=== PATIENT | male | born 1940 | race Caucasian/White ===

== ENCOUNTER → 2016-04-05 | Outpatient (CLI) | payer MEDICARE | LOC: LAB 09:50 | PROVIDERS: ATTEND Family Medicine | DX: E78.2 Mixed hyperlipidemia (principal); E10.65 Type 1 diabetes mellitus with hyperglycemia; N41.0 Acute prostatitis; N41.9 Inflammatory disease of prostate, unspecified | CPT/HCPCS: 36415; 80061; 83036; 84153 ==

== ENCOUNTER → 2016-05-30 | Outpatient (CLI) | payer MEDICARE ==
[~2016-05-30] MED LIST: ALLO300T2 PO; AMLO10TA82 PO; ASPI-860 PO; CARV12.5 PO; CHOL100045 PO; CLOP75TA28 PO; FURO40TA4 PO; GLIP5TAB13 PO; HYDR-3702 PO; INSU100V5 SC; IRBE1TAB67 PO; LVT.05T PO; METF-473 PO; MULT-35 PO; NF-POTCH10 PO
[2016-05-30 15:14] LABS: BASOPHILS % (AUTO) 1 % (0-2); EOSINOPHILS # (AUTO) 0.3 10^3uL; EOSINOPHILS % (AUTO) 4 % (0-4); LYMPHOCYTES # (AUTO) 1.4 X10^3; MEAN CORPUSCULAR HEMOGLOBIN 28.3 PG (26.0-34.0); MEAN CORPUSCULAR HGB CONC 33.4 g/dL (31.0-37.0); MEAN CORPUSCULAR VOLUME 85 FL (80-100); MEAN PLATELET VOLUME 9.6 FL (6.0-9.5); MONOCYTES # (AUTO) 0.7 X10^3; MONOCYTES % (AUTO) 10 % (3-11); NEUTROPHILS # (AUTO) 4.4 X10^3; NEUTROPHILS % (AUTO) 65 % (51-67); PLATELET COUNT 233 10^3uL (150-450); WHITE BLOOD COUNT 6.76 10^3uL (4.0-11.0)
--- NOTE | 2016-05-30 15:39 | Diagnostic Imaging Report ---
INDICATION: Dyspnea, heart failure. DISCUSSION: Two views of the chest were obtained, comparison 01/11/2016. Underlying COPD is stable. Stable normal heart size. Left-sided pacemaker and median sternotomy are unchanged. No focal consolidation, pleural fluid, or pneumothorax. Subsegmental atelectasis present within the left lung base. IMPRESSION: 1. Negative chest. Dictated by: Dictated on workstation # [id number]
[2016-05-30 16:02] LABS: ANION GAP 18.8 MEQ/L (3-15); MAGNESIUM* 1.8 mg/dL (1.6-2.3)
== END ==
LOC: LAB 15:03
PROVIDERS: ATTEND Family Medicine
DX: I50.21 Acute systolic (congestive) heart failure (principal); E83.42 Hypomagnesemia; D50.8 Other iron deficiency anemias; R79.89 Other specified abnormal findings of blood chemistry
CPT/HCPCS: 36415; 71020; 80048; 83735; 83880; 85025

== ENCOUNTER → 2016-06-13 | Outpatient (CLI) | payer MEDICARE ==
[2016-06-13 14:57] LABS: ANION GAP 18.1 MEQ/L (3-15)
== END ==
LOC: LAB 14:23
PROVIDERS: ATTEND Family Medicine
DX: R79.89 Other specified abnormal findings of blood chemistry (principal)
CPT/HCPCS: 36415; 80048

== ENCOUNTER 2016-06-30 01:22 | Emergency (ER) | payer MEDICARE ==
[~2016-06-30] VITALS: Ht 172.7 cm; Wt 90.0 kg
[~2016-06-30 01:22] MED LIST changes: -MOME13HF IH; -NIAC500T24 PO
--- OUTSIDE RECORDS SUMMARY | 2016-06-30 01:29 | XMS REPORT | Continuity of Care Document ---
Author Author [facility] Address Unknown Phone Unavailable Allergies Active Description Code Type Severity Reaction Onset Reported/Identified Relationship to Patient Clinical Status Yes No Known Drug Allergies [id number] Drug Allergy Unknown N/ A 01/24/2013 Yes Jlqrdnf-Naq-Fwd Reductase Inhibitor [id number] Drug Allergy Mild N/A 09/12/2014 Medications Problems Date Dx Coded Attending Type Code Diagnosis Diagnosed By 01/24/2013 ANDI SOLIZ, DIEGO Kern Ot 250.00 01/24/2013 DIEGO ESCAMILLA MD Ot 401.9 01/24/2013 ANDI SOLIZ, DIEGO Kern Ot 782.0 01/15/2014 CORBIN SOLIZ, NATALIA Medrano Ot 250.00 01/15/2014 CORBIN SOLIZ, NATALIA Medrano Ot 272.0 01/15/2014 CORBIN SOLIZ, NATALIA Medrano Ot 274.9 01/15/2014 CORBIN SOLIZ, NATALIA Medrano Ot 285.9 01/15/2014 CORBIN SOLIZ, NATALIA Medrano Ot 401.9 01/15/2014 CORBIN SOLIZ, NATALIA Medrano Ot 427.9 01/15/2014 CORBIN SOLIZ, NATALIA Medrano Ot 599.0 01/15/2014 CORBIN SOLIZ, NATALIA Medrano Ot 601.9 01/15/2014 CORBIN SOLIZ, NATALIA Medrano Ot 733.00 01/15/2014 CORBIN SOLIZ, NATALIA Medrano Ot 786.09 01/15/2014 CORBIN SOLIZ, NATALIA Medrano Ot 790.6 02/17/2014 CORBIN SOLIZ, NATALIA Medrano Ot 601.9 02/17/2014 CROBIN SOLIZ, NATALIA Medrano Ot 786.2 02/17/2014 CORBIN SOLIZ, NATALIA Medrano Ot 790.29 02/19/2014 CORBIN SOLIZ, NATALIA Medrano Ot 601.9 02/19/2014 CORBIN SOLIZ, NATALIA Medrano Ot 786.2 02/19/2014 CORBIN SOLIZ, NATALIA Medrano Ot 790.29 03/06/2014 Bartolo Villavicencio Ot 788.63 04/16/2014 Ethan SOLIZ, Jon Brown Ot 599.0 04/16/2014 Ethan SOLIZ, Jon Brown Ot 791.5 06/10/2014 Ehtan SOLIZ, Jon Brown Ot 595.0 06/26/2014 Ethan SOLIZ, Jon Brown Ot 562.10 06/26/2014 Ethan SOLIZ, Jon Brown Ot 573.9 06/26/2014 Ethan SOLIZ, Jon Brown Ot 574.20 06/26/2014 Ethan SOLIZ, Jon Brown Ot 599.0 06/26/2014 Ethan SOLIZ, Jon Brown Ot 785.6 06/26/2014 Ethan SOLIZ, Jon Brown Ot 794.9 07/11/2014 Ethan SOLIZ, Jon Brown Ot 562.10 07/11/2014 Ethan SOLIZ, Jon Brown Ot 573.9 07/11/2014 Ethan SOLIZ, Jon Brown Ot 574.20 07/11/2014 Ethan SOLIZ, Jon Brown Ot 599.0 07/11/2014 Ethan SOLIZ, Jon Brown Ot 785.6 07/11/2014 Ethan SOLIZ, Jon Brown Ot 794.9 08/03/2014 ALYSSIA DO, CELINE M Ot 410.91 08/03/2014 ALYSSIA DO, CELINE M Ot 428.0 08/03/2014 ALYSSIA DO, CELINE M Ot 518.81 08/03/2014 ALYSSIA DO, CELINE M Ot 786.05 08/20/2014 Ethan SOLIZ, Jon Brown Ot 790.93 08/27/2014 ALYSSIA DO, CELINE M Ot 410.90 08/27/2014 ALYSSIA DO, CELINE M Ot 518.81 08/28/2014 ALYSSIA DO, CELINE M Ot 410.90 08/28/2014 ALYSSIA DO, CELINE M Ot 518.81 09/12/2014 CRUZ DOMILAD M Ot 412 09/12/2014 CRUZ DOMILAD Ot 724.5 09/12/2014 CRUZ DOMILAD Ot 847.1 09/12/2014 CRUZ DOMILDA Ot E928.9 09/12/2014 CRUZ MILAD OROZCO Ot V45.81 10/10/2014 CORBIN SOLIZ, NATALIA R Ot 428.0 10/10/2014 CORBIN SOLIZ, NATALIA R Ot 790.6 11/19/2014 Drew John Ot 414.00 11/19/2014 Drew John Ot V45.01 11/19/2014 Drew John Ot V45.81 11/19/2014 Drew John Ot V57.89 12/11/2014 CORBIN SOLIZ, NATALIA R Ot G47.33 12/14/2014 CORBIN SOLIZ, NATALIA R Ot G47.33 12/24/2014 CORBIN SOLIZ, NATALIA R Ot G47.33 01/01/2015 CORBIN SOLIZ, NATALIA R Ot G47.33 01/19/2015 CORBIN SOLIZ, NATALIA Medrano Ot D50.8 01/19/2015 CORBIN SOLIZ, NATALIA R Ot E10.9 01/19/2015 CORBIN SOLIZ, NATALIA Medrano Ot E78.0 01/19/2015 CORBIN SOLIZ, NATALIA Medrano Ot E83.42 01/19/2015 CORBIN SOLIZ, NATALIA R Ot G72.0 01/19/2015 CORBIN SOLIZ, NATALIA R Ot K71.2 01/19/2015 CORBIN SOLIZ, NATALIA R Ot M10.00 01/19/2015 CORBIN SOLIZ, NATALIA R Ot M15.9 01/19/2015 CORBIN SOLIZ, NATALIA R Ot M81.0 01/19/2015 CORBIN SOLIZ, NATALIA R Ot N39.0 01/19/2015 CORBIN SOLIZ, NATALIA R Ot R79.89 01/19/2015 CORBIN SOLIZ, NATALIA R Ot Z12.5 01/19/2015 Drew John Ot Z95.0 01/19/2015 Drew John Ot Z95.1 01/22/2015 CORBIN SOLIZ, NATALIA Medrano Ot D50.8 01/22/2015 CORBIN SOLIZ, NATALIA Medrano Ot E10.9 01/22/2015 CORBIN SOLIZ, NATALIA Medrano Ot E78.0 01/22/2015 CORBIN SOLIZ, NATALIA Medrano Ot E83.42 01/22/2015 CORBIN SOLIZ, NATALIA R Ot G72.0 01/22/2015 CORBIN SOLIZ, NATALIA R Ot K71.2 01/22/2015 CORBIN SOLIZ, NATALIA R Ot M10.00 01/22/2015 CORBIN SOLIZ, NATALIA R Ot M15.9 01/22/2015 CORBIN SOLIZ, NATALIA R Ot M81.0 01/22/2015 CORBIN SOLIZ, NATALIA R Ot N39.0 01/22/2015 CORBIN SOLIZ, NATALIA R Ot R79.89 01/22/2015 CORBIN SOLIZ, NATALIA R Ot Z12.5 02/25/2015 Ot 715.09 02/25/2015 Ot 244.9 02/25/2015 Ot 250.00 02/25/2015 Ot 272.0 02/25/2015 Ot 275.2 02/25/2015 Ot 285.9 02/25/2015 Ot 427.9 02/25/2015 Ot 599.0 02/25/2015 Ot 733.00 02/25/2015 Ot 786.2 02/25/2015 Ot 790.6 02/25/2015 Ot V76.44 02/25/2015 Ot 250.00 02/25/2015 Ot 272.0 02/25/2015 Ot 401.9 02/25/2015 Ot 601.9 02/25/2015 Ot 733.90 02/25/2015 CORBIN SOLIZ, NATALIA R Ot 401.9 02/25/2015 CORBIN SOLIZ, NATALIA R Ot 434.91 02/25/2015 CORBIN SOLIZ, NATALIA R Ot 396.3 02/25/2015 CORBIN SOLIZ, NATALIA R Ot 397.0 02/25/2015 CORBIN SOLIZ, NATALIA R Ot 429.3 02/25/2015 CORBIN SOLIZ, NATALIA R Ot 429.9 02/25/2015 CORBIN SOLIZ, NATALIA R Ot 434.91 02/25/2015 CORBIN SOLIZ, NATALIA R Ot 272.0 02/25/2015 CORBIN SOLIZ, NATALIA R Ot 601.9 02/25/2015 CORBIN SOLIZ, NATALIA R Ot 790.6 02/25/2015 CORBIN SOLIZ, NATALIA R Ot 250.00 02/25/2015 CORBIN SOLIZ, NATALIA R Ot 272.0 02/25/2015 CORBIN SOLIZ, NATALIA R Ot 274.9 02/25/2015 CORBIN SOLIZ, NATALIA R Ot 285.9 02/25/2015 CORBIN SOLIZ, NATALIA R Ot 401.9 02/25/2015 CORBIN SOLIZ, NATALIA R Ot 427.9 02/25/2015 CORBIN SOLIZ, NATALIA R Ot 599.0 02/25/2015 CORBIN SOLIZ, NATALIA R Ot 601.9 02/25/2015 CORIBN SOLIZ, NATALIA R Ot 733.00 02/25/2015 CORBIN SOLIZ, NATALIA R Ot 786.09 02/25/2015 CORBIN SOLIZ, NATALIA R Ot 790.6 02/25/2015 CORBIN SOLIZ, NATALIA R Ot 601.9 02/25/2015 CORBIN SOLIZ, NATALIA R Ot 786.2 02/25/2015 CORBIN SOLIZ, NATALIA R Ot 790.29 02/25/2015 Bartolo Villavicencio Ot 788.63 02/25/2015 Ethan SOLIZ, Jon Brown Ot 599.0 02/25/2015 Ethan SOLIZ, Jon Brown Ot 791.5 02/25/2015 Ethan SOLIZ, Jon Brown Ot 595.0 02/25/2015 Ethan SOLIZ, Jon Brown Ot 562.10 02/25/2015 Ethan SOLIZ, Jon Brown Ot 573.9 02/25/2015 Ethan SOLIZ, Jon Brown Ot 574.20 02/25/2015 Ethan SOLIZ, Jon Brown Ot 599.0 02/25/2015 Ethan SOLIZ, Jon Brown Ot 785.6 02/25/2015 Ethan SOLIZ, Jon Brown Ot 794.9 02/25/2015 Ethan SOLIZ, Jon Brown Ot 790.93 02/25/2015 ALYSSIA DOCELINE M Ot 410.90 02/25/2015 ELLIOT CADE DOA M Ot 518.81 02/25/2015 CORIBN SOLIZ, NATALIA Medrano Ot 428.0 02/25/2015 CORBIN SOLIZ, NATALIA Medrano Ot 790.6 02/25/2015 CORBIN SOLIZ, NATALIA Medrano Ot G47.33 02/25/2015 CORBIN SOLIZ, NATALIA Medrano Ot D50.8 02/25/2015 CORBIN SOLIZ, NATALIA Medrano Ot E10.9 02/25/2015 CORBIN SOLIZ, NATALIA R Ot E78.0 02/25/2015 CORBIN SOLIZ, NATALIA R Ot E83.42 02/25/2015 CORBIN SOLIZ, NATALIA R Ot G72.0 02/25/2015 CORBIN SOLIZ, NATALIA R Ot K71.2 02/25/2015 CORBIN SOLIZ, NATALIA R Ot M10.00 02/25/2015 CORBIN SOLIZ, NATALIA R Ot M15.9 02/25/2015 CORBIN SOLIZ, NATALIA R Ot M81.0 02/25/2015 CORBIN SOLIZ, NATALIA R Ot N39.0 02/25/2015 CORBIN SOLIZ, NATALIA R Ot R79.89 02/25/2015 CORBIN SOLIZ, NATALIA R Ot Z12.5 03/04/2015 Ot 715.09 03/04/2015 Ot 244.9 03/04/2015 Ot 250.00 03/04/2015 Ot 272.0 03/04/2015 Ot 275.2 03/04/2015 Ot 285.9 03/04/2015 Ot 427.9 03/04/2015 Ot 599.0 03/04/2015 Ot 733.00 03/04/2015 Ot 786.2 03/04/2015 Ot 790.6 03/04/2015 Ot V76.44 03/04/2015 Ot 250.00 03/04/2015 Ot 272.0 03/04/2015 Ot 401.9 03/04/2015 Ot 601.9 03/04/2015 Ot 733.90 03/04/2015 CORBIN SOLIZ, NATALIA R Ot 401.9 03/04/2015 CORBIN SOLIZ, NATALAI R Ot 434.91 03/04/2015 CORBIN SOLIZ, NATALIA R Ot 396.3 03/04/2015 CORBIN SOLIZ, NATALIA R Ot 397.0 03/04/2015 CORBIN SOLIZ, NATALIA R Ot 429.3 03/04/2015 CORBIN SOLIZ, NATALIA R Ot 429.9 03/04/2015 CORBIN SOLIZ, NATALIA R Ot 434.91 03/04/2015 CORBIN SOLIZ, NATALIA R Ot 272.0 03/04/2015 CORBIN SOLIZ, NATALIA R Ot 601.9 03/04/2015 CORBIN SOLIZ, NATALIA R Ot 790.6 03/04/2015 CORBIN SOLIZ, NATALIA R Ot 250.00 03/04/2015 CORBIN SOLIZ, NATALIA R Ot 272.0 03/04/2015 CORBIN SOLIZ, NATALIA R Ot 274.9 03/04/2015 CORBIN SOLIZ, NATALIA R Ot 285.9 03/04/2015 CORBIN SOLIZ, NATALIA R Ot 401.9 03/04/2015 CORBIN SOLIZ, NATALIA R Ot 427.9 03/04/2015 CORBIN SOLIZ, NATALIA R Ot 599.0 03/04/2015 CORBIN SOLIZ, NATALIA R Ot 601.9 03/04/2015 CORBIN SOLIZ, NATALIA R Ot 733.00 03/04/2015 CORBIN SOLIZ, NATALIA R Ot 786.09 03/04/2015 CORBIN SOLIZ, NATALIA R Ot 790.6 03/04/2015 CORBIN SOLIZ, NATALIA R Ot 601.9 03/04/2015 CORBIN SOLIZ, NATALIA R Ot 786.2 03/04/2015 CORBIN SOLIZ, NATALIA R Ot 790.29 03/04/2015 Bartolo Villavicencio Ot 788.63 03/04/2015 Ethan SOLIZ, Jon Brown Ot 599.0 03/04/2015 Ethan SOLIZ, Jon Brown Ot 791.5 03/04/2015 Ethan SOLIZ, Jon Brown Ot 595.0 03/04/2015 Ethan SOLIZ, Jon Brown Ot 562.10 03/04/2015 Ethan SOLIZ, Jon Brown Ot 573.9 03/04/2015 Ethan SOLIZ, Jon Brown Ot 574.20 03/04/2015 Ethan SOLIZ, Jon Brown Ot 599.0 03/04/2015 Ethan SOLIZ, Jon Brown Ot 785.6 03/04/2015 Ethan SOLIZ, Jon Brown Ot 794.9 03/04/2015 Ethan SOLIZ, Jon Brown Ot 790.93 03/04/2015 CELINE CADE DO M Ot 410.90 03/04/2015 CELINE CADE DO M Ot 518.81 03/04/2015 CORBIN SOLIZ, NATALIA R Ot 428.0 03/04/2015 CORBIN SOLIZ, NATALIA R Ot 790.6 03/04/2015 CORBIN SOLIZ, NATALIA R Ot G47.33 03/04/2015 CORBIN SOLIZ, NATALIA R Ot D50.8 03/04/2015 CORBIN SOLIZ, NATALIA R Ot E10.9 03/04/2015 CORBIN SOLIZ, NATALIA R Ot E78.0 03/04/2015 CORBIN SOLIZ, NATALIA R Ot E83.42 03/04/2015 CORBIN SOLIZ, NATALIA R Ot G72.0 03/04/2015 CORBIN SOLIZ, NATALIA R Ot K71.2 03/04/2015 CORBIN SOLIZ, NATALIA R Ot M10.00 03/04/2015 CORBIN SOLIZ, NATALIA R Ot M15.9 03/04/2015 CORBNI SOLIZ, NATALIA R Ot M81.0 03/04/2015 CORBIN SOLIZ, NATALIA R Ot N39.0 03/04/2015 CORBIN SOLIZ, NATALIA R Ot R79.89 03/04/2015 CORBIN SOLIZ, NATALIA R Ot Z12.5 04/15/2015 CORBIN SOLIZ, NATALIA R Ot E10.65 04/15/2015 CORBIN SOLIZ, NATALIA R Ot E78.0 04/15/2015 CORBIN SOLIZ, NATALIA R Ot I50.21 04/23/2015 CORBIN SOLIZ, NATALIA R Ot E10.65 04/23/2015 CORBIN SOLIZ, NATALIA R Ot E78.0 04/23/2015 CORBIN SOLIZ, NATALIA R Ot I50.21 05/08/2015 Daily , Kashif Perez Ot M17.0 05/08/2015 Daily , Kashif Perez Ot M25.461 05/08/2015 Daily , Kashif Perez Ot M25.462 05/08/2015 Daily , Kashif Perez Ot M25.561 05/08/2015 Daily , Kashif Perez Ot M25.562 05/15/2015 Daily , Kashif Perez Ot M17.0 05/15/2015 Daily , Kashif Perez Ot M25.461 05/15/2015 Daily , Kashif Perez Ot M25.462 05/15/2015 Daily , Kashif Perez Ot M25.561 05/15/2015 Daily , Kashif Perez Ot M25.562 05/20/2015 NATALIA ALANIZ MD Ot E10.65 05/20/2015 NATALIA ALANIZ MD Ot E78.0 05/20/2015 NATALIA ALANIZ MD Ot I50.21 06/22/2015 NATALIA ALANIZ MD Ot E10.65 TYPE 1 DIABETES MELLITUS WITH HYPERGLYCE 06/22/2015 NATALIA ALANIZ MD Ot E10.65 TYPE 1 DIABETES MELLITUS WITH HYPERGLYCE 06/29/2015 NATALIA ALANIZ MD Ot E10.65 TYPE 1 DIABETES MELLITUS WITH HYPERGLYCE 07/06/2015 NATALIA ALANIZ MD Ot D50.8 OTHER IRON DEFICIENCY ANEMIAS 07/06/2015 NATALIA ALANIZ MD Ot E10.65 TYPE 1 DIABETES MELLITUS WITH HYPERGLYCE 07/06/2015 NATALIA ALANIZ MD Ot I50.21 ACUTE SYSTOLIC (CONGESTIVE) HEART FAILUR 07/16/2015 NATALIA ALANIZ MD Ot D50.8 OTHER IRON DEFICIENCY ANEMIAS 07/16/2015 NATALIA ALANIZ MD Ot E10.65 TYPE 1 DIABETES MELLITUS WITH HYPERGLYCE 07/16/2015 NATALIA ALANIZ MD Ot I50.21 ACUTE SYSTOLIC (CONGESTIVE) HEART FAILUR 07/23/2015 NATALIA ALANIZ MD Ot D50.8 OTHER IRON DEFICIENCY ANEMIAS 07/23/2015 NATALIA ALANIZ MD Ot E10.65 TYPE 1 DIABETES MELLITUS WITH HYPERGLYCE 07/23/2015 NATALIA ALANIZ MD Ot I50.21 ACUTE SYSTOLIC (CONGESTIVE) HEART FAILUR 10/08/2015 NATALIA ALANIZ MD Ot R79.89 OTHER SPECIFIED ABNORMAL FINDINGS OF BLO 10/08/2015 NATALIA ALANIZ MD Ot R79.89 OTHER SPECIFIED ABNORMAL FINDINGS OF BLO 10/13/2015 NATALIA ALANIZ MD Ot E10.65 TYPE 1 DIABETES MELLITUS WITH HYPERGLYCE 10/13/2015 NATALIA ALANIZ MD Ot R79.89 OTHER SPECIFIED ABNORMAL FINDINGS OF BLO 10/14/2015 NATALIA ALANIZ MD Ot E10.65 TYPE 1 DIABETES MELLITUS WITH HYPERGLYCE 10/14/2015 NATALIA ALANIZ MD Ot R79.89 OTHER SPECIFIED ABNORMAL FINDINGS OF BLO 10/20/2015 NATALIA ALANIZ MD, Ot E10.65 TYPE 1 DIABETES MELLITUS WITH HYPERGLYCE 10/20/2015 NATALIA ALANIZ MD Ot R79.89 OTHER SPECIFIED ABNORMAL FINDINGS OF BLO 10/30/2015 NATALIA ALANIZ MD Ot E10.65 TYPE 1 DIABETES MELLITUS WITH HYPERGLYCE 10/30/2015 NATALIA ALANIZ MD Ot R79.89 OTHER SPECIFIED ABNORMAL FINDINGS OF BLO 01/11/2016 NATALIA ALANIZ MD Ot E78.5 HYPERLIPIDEMIA, UNSPECIFIED 01/11/2016 NATALIA ALANIZ MD Ot R79.89 OTHER SPECIFIED ABNORMAL FINDINGS OF BLO 01/11/2016 NATALIA ALANIZ MD, Ot E78.5 HYPERLIPIDEMIA, UNSPECIFIED 01/11/2016 NATALIA ALANIZ MD Ot R79.89 OTHER SPECIFIED ABNORMAL FINDINGS OF BLO 01/11/2016 NATALIA ALANIZ MD, Ot E78.5 HYPERLIPIDEMIA, UNSPECIFIED 01/11/2016 NATALIA ALANIZ MD Ot R79.89 OTHER SPECIFIED ABNORMAL FINDINGS OF BLO 01/11/2016 NATALIA ALANIZ MD, Ot E78.5 HYPERLIPIDEMIA, UNSPECIFIED 01/11/2016 NATALIA ALANIZ MD Ot R79.89 OTHER SPECIFIED ABNORMAL FINDINGS OF BLO 01/15/2016 NATALIA ALANIZ MD Ot D50.8 OTHER IRON DEFICIENCY ANEMIAS 01/15/2016 NATALIA ALANIZ MD Ot E03.4 ATROPHY OF THYROID (ACQUIRED) 01/15/2016 NATALIA ALANIZ MD Ot E10.65 TYPE 1 DIABETES MELLITUS WITH HYPERGLYCE 01/15/2016 NATALIA ALANIZ MD, Ot E78.5 HYPERLIPIDEMIA, UNSPECIFIED 01/15/2016 NATALIA ALANIZ MD Ot E83.42 HYPOMAGNESEMIA 01/15/2016 NATALIA ALANIZ MD Ot I25.10 ATHSCL HEART DISEASE OF [place] CORONARY 01/15/2016 NATALIA ALANIZ MD Ot M10.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, RIGHT KNEE 01/15/2016 NATALIA ALANIZ MD Ot N39.0 URINARY TRACT INFECTION, SITE NOT SPECIF 01/15/2016 NATALIA ALANIZ MD Ot R79.89 OTHER SPECIFIED ABNORMAL FINDINGS OF BLO 01/15/2016 NATALIA ALANIZ MD Ot Z12.5 ENCOUNTER FOR SCREENING FOR MALIGNANT NE 02/03/2016 NATALIA ALANIZ MD Ot D50.8 OTHER IRON DEFICIENCY ANEMIAS 02/03/2016 NATALIA ALANIZ MD Ot E03.4 ATROPHY OF THYROID (ACQUIRED) 02/03/2016 NATALIA ALANIZ MD Ot E10.65 TYPE 1 DIABETES MELLITUS WITH HYPERGLYCE 02/03/2016 NATALIA ALANIZ MD Ot E78.5 HYPERLIPIDEMIA, UNSPECIFIED 02/03/2016 NATALIA ALANIZ MD Ot E83.42 HYPOMAGNESEMIA 02/03/2016 NATALIA ALANIZ MD Ot I25.10 ATHSCL HEART DISEASE OF [place] CORONARY 02/03/2016 NATALIA ALANIZ MD Ot M10.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, RIGHT KNEE 02/03/2016 NATALIA ALANIZ MD Ot N39.0 URINARY TRACT INFECTION, SITE NOT SPECIF 02/03/2016 NATALIA ALANIZ MD Ot R79.89 OTHER SPECIFIED ABNORMAL FINDINGS OF BLO 02/03/2016 NATALIA ALANIZ MD Ot Z12.5 ENCOUNTER FOR SCREENING FOR MALIGNANT NE 02/19/2016 NATALIA ALANIZ MD Ot D50.8 OTHER IRON DEFICIENCY ANEMIAS 02/19/2016 NATALIA ALANIZ MD Ot E03.4 ATROPHY OF THYROID (ACQUIRED) 02/19/2016 NATALIA ALANIZ MD, Ot E10.65 TYPE 1 DIABETES MELLITUS WITH HYPERGLYCE 02/19/2016 NATALIA ALANIZ MD Ot E78.5 HYPERLIPIDEMIA, UNSPECIFIED 02/19/2016 NATALIA ALANIZ MD Ot E83.42 HYPOMAGNESEMIA 02/19/2016 NATALIA ALANIZ MD Ot I25.10 ATHSCL HEART DISEASE OF [place] CORONARY 02/19/2016 NATALIA ALANIZ MD Ot M10.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, RIGHT KNEE 02/19/2016 NATALIA ALANIZ MD Ot N39.0 URINARY TRACT INFECTION, SITE NOT SPECIF 02/19/2016 NATALIA ALANIZ MD Ot R79.89 OTHER SPECIFIED ABNORMAL FINDINGS OF BLO 02/19/2016 NATALIA ALANIZ MD Ot Z12.5 ENCOUNTER FOR SCREENING FOR MALIGNANT NE 04/05/2016 NATALIA ALANIZ MD Ot E10.65 TYPE 1 DIABETES MELLITUS WITH HYPERGLYCE 04/05/2016 NATALIA ALANIZ MD Ot E78.2 MIXED HYPERLIPIDEMIA 04/05/2016 NATALIA ALANIZ MD, Ot N41.9 INFLAMMATORY DISEASE OF [place], UNSPEC 04/05/2016 NATALIA ALANIZ MD, Ot E10.65 TYPE 1 DIABETES MELLITUS WITH HYPERGLYCE 04/05/2016 NATALIA ALANIZ MD Ot E78.2 MIXED HYPERLIPIDEMIA 04/05/2016 NATALIA ALANIZ MD, Ot N41.9 INFLAMMATORY DISEASE OF [place], UNSPEC 04/06/2016 NATALIA ALANIZ MD Ot E10.65 TYPE 1 DIABETES MELLITUS WITH HYPERGLYCE 04/06/2016 NATALIA ALANIZ MD, Ot E78.2 MIXED HYPERLIPIDEMIA 04/06/2016 NATALIA ALANIZ MD, Ot N41.9 INFLAMMATORY DISEASE OF [place], UNSPEC 04/09/2016 NATALIA ALANIZ MD Ot E10.65 TYPE 1 DIABETES MELLITUS WITH HYPERGLYCE 04/09/2016 NATALIA ALANIZ MD Ot E78.2 MIXED HYPERLIPIDEMIA 04/09/2016 NATALIA ALANIZ MD, Ot N41.9 INFLAMMATORY DISEASE OF [place], UNSPEC 04/11/2016 NATALIA ALANIZ MD Ot E10.65 TYPE 1 DIABETES MELLITUS WITH HYPERGLYCE 04/11/2016 NATALIA ALANIZ MD Ot E78.2 MIXED HYPERLIPIDEMIA 04/11/2016 NATALIA ALANIZ MD Ot N41.0 ACUTE PROSTATITIS 04/11/2016 NATALIA ALANIZ MD Ot N41.9 INFLAMMATORY DISEASE OF [place], UNSPEC 04/28/2016 NATALIA ALANIZ MD Ot E10.65 TYPE 1 DIABETES MELLITUS WITH HYPERGLYCE 04/28/2016 NATALIA ALANIZ MD Ot E78.2 MIXED HYPERLIPIDEMIA 04/28/2016 NATALIA ALANIZ MD Ot N41.0 ACUTE PROSTATITIS 04/28/2016 NATALIA ALANIZ MD, Ot N41.9 INFLAMMATORY DISEASE OF [place], UNSPEC 05/30/2016 NATALIA ALANIZ MD Ot R79.89 OTHER SPECIFIED ABNORMAL FINDINGS OF BLO 05/30/2016 NATALIA ALANIZ MD Ot R79.89 OTHER SPECIFIED ABNORMAL FINDINGS OF BLO 05/31/2016 NATALIA ALANIZ MD Ot R79.89 OTHER SPECIFIED ABNORMAL FINDINGS OF BLO 06/01/2016 NATALIA ALANIZ MD, Ot D50.8 OTHER IRON DEFICIENCY ANEMIAS 06/01/2016 NATALIA ALANIZ MD, Ot E83.42 HYPOMAGNESEMIA 06/01/2016 NATALIA ALANIZ MD Ot I50.21 ACUTE SYSTOLIC (CONGESTIVE) HEART FAILUR 06/01/2016 NATALIA ALANIZ MD Ot R79.89 OTHER SPECIFIED ABNORMAL FINDINGS OF BLO 06/18/2016 NATALIA ALANIZ MD Ot R79.89 OTHER SPECIFIED ABNORMAL FINDINGS OF BLO 06/19/2016 NATALIA ALANIZ MD Ot R79.89 OTHER SPECIFIED ABNORMAL FINDINGS OF BLO 06/21/2016 NATALIA ALANIZ MD, Ot D50.8 OTHER IRON DEFICIENCY ANEMIAS 06/21/2016 NATALIA ALANIZ MD, Ot E83.42 HYPOMAGNESEMIA 06/21/2016 NATALIA ALANIZ MD Ot I50.21 ACUTE SYSTOLIC (CONGESTIVE) HEART FAILUR 06/21/2016 NATALIA ALANIZ MD Ot R79.89 OTHER SPECIFIED ABNORMAL FINDINGS OF BLO Procedures Results Test Result Range HEMOGLOBIN A1C* - 10/08/15 13:37 HEMOGLOBIN A1C* 6.8 4.0-6.0 BASIC METABOLIC PANEL* - 10/08/15 13:37 Sodium measurement 158 70-110 Carbon dioxide measurement 24 22-29 Serum or plasma anion gap 21.0 3-15 BLOOD UREA NITROGEN 27 7-18 CREATININE SERUM 1.21 0.8-1.5 Brucella species antibody panel (IgG, IgM) 22 10-20 Estimated glomerular filtration rate (GFR) 70.9 Estimated glomerular filtration rate (GFR) non- 58.6 CALCIUM 10.0 8.8-10.8 Urine microalbumin measurement by detection limit <=20 mg/l (mass/volume) - 13:37 Urine microalbumin measurement by detection limit <=20 mg/l (mass/volume) 30.2 0.0-1.7 Complete blood count (CBC) with automated white blood cell (WBC) differential - 01/11/16 09:21 Blood automated leukocyte count 4.91 4.0 -11.0 Erythrocytes 4.87 4.50-5.50 12.0-16.0;g/dL 14.3 13.5-17.0 Hematocrit 41.10 39.00-50.00 Automated erythrocyte mean corpuscular volume 84 80-100 Mean corpuscular hemoglobin (MCH) determination 29.4 26.0-34.0 Automated erythrocyte mean corpuscular hemoglobin concentration measurement ( mass/volume) 34.8 31.0-37.0 Erythrocyte distribution width 13.8 11.8 -15.6 Automated blood platelet count 217 150- 450 Automated blood platelet mean volume measurement 10.0 6.0-9.5 Automated neutrophil percentage 58 51- 67 Lymphocytes/100 leukocytes 26 20-46 Automated monocyte percentage 10 3-11 Eosinophil count auto 4 0-4 Automated basophil percentage 1 0-2 Automated blood neutrophil count 2.9 Blood lymphocytes count (number/volume) 1.3 Automated blood monocyte count 0.5 Blood absolute eosinophil count 0.2 Basophils 0.1 HEMOGLOBIN A1C* - 01/11/16 09:21 HEMOGLOBIN A1C* 7.0 4.0-6.0 UA CULTURE IF INDICATED* - 01/11/16 09:21 COLLECTION METHOD CLEAN CATCH Color of urine by auto Yellow Urine appearance determination Clear Urine pH measurement by automated test strip 6.0 5.0 - 8.0 Specific gravity of urine by automated test strip 1.020 1.005-1.030 Urine protein measurement by test strip (mass/volume) 1+ Negative Urine glucose detection by automated test strip Negative Negative Urine erythrocytes count by automated test strip (number/volume) Negative Negative Urine ketones detection by automated test strip Negative Negative Urine nitrite detection by test strip Negative Negative Urine total bilirubin detection by automated test strip Negative Negative Urine urobilinogen measurement by automated test strip (mass/volume) 0.2 0.2-1.0 Urine leukocyte esterase detection by dipstick Negative Negative Microscopic examination of urine - 01/11/16 09:21 Urine volume measurement 12 mL Urine erythrocytes detection by automated method None Seen Automated urine sediment leukocyte count by microscopy (number/high power field ) None Seen Bacteria None Seen SQUAMOUS EPITHELIAL CELL,UR 0-2 MUCOUS,URINE 1+ Comprehensive metabolic panel - 01/11/16 09:21 Sodium measurement 176 70-110 Carbon dioxide measurement 25 22-29 Serum or plasma anion gap 19.8 3-15 BLOOD UREA NITROGEN 20 7-18 CREATININE SERUM 1.27 0.8-1.5 Brucell[place] species antibody panel (IgG, IgM) 16 10-20 Estimated glomerular filtration rate (GFR) 67.1 Estimated glomerular filtration rate (GFR) non- 55.4 OSMOLALITY,CALCULATED 286 280-300 CALCIUM 9.9 8.8-10.8 Calculated ionized calcium measurement 4.1 3.8-4.6 BILIRUBIN,TOTAL 0.8 0.1-1.0 Serum or plasma alkaline phosphatase measurement 89 38-126 ASPARTATE AMINO TRANSFERASE 29 15-37 ALANINE AMINOTRANSFERASE 45 30-65 Serum or plasma total protein measurement 8.0 6.4-8.5 Serum or plasma albumin measurement 4.3 3.4-5.0 Serum or plasma albumin/globulin mass ratio 1.162 1.1-1.8 URIC ACID - 01/11/16 09: URIC ACID 6.8 3.8-7.1 Magnesium measurement - 01/11/16 09: Magnesium measurement 1.7 1.6-2.3 Vitamin D+Metabolites - 01/11/16 09: Vitamin D+Metabolites 33.7 30.0-100.0 THYROID STIMULATING HORMONE* - 01/11/16 09: THYROID STIMULATING HORMONE 0.98 0.46- 4.68 Prostate specific Ag - 01/11/16 09: Prostate specific Ag 8.3 0.0-4.0 Thyroxine (T4) measurement - 01/11/16 09: Serum or plasma thyroxine (T4) measurement (mass/volume) 8.3 4.8-11.7 LIPID PANEL - 01/11/16 09:21 Cholesterol 275 50-200 HDL Cholesterol 32 40-60 Triglycerides 647 10-150 LDL CHOLESTEROL TNP 50-130 VLDL Cholesterol, calc TNP 4.00-40.00 Cholesterol.total/Cholesterol.in HDL 8.6 0.0-5.0 * Serum or plasma hepatitis C virus antibody signal/cutoff by immunoassay - 09:21 * Serum or plasma hepatitis C virus antibody signal/cutoff by immunoassay Negative Urine microalbumin measurement by detection limit <=20 mg/l (mass/volume) - 09:25 Urine microalbumin measurement by detection limit <=20 mg/l (mass/volume) 30.2 0.0-1.7 HEMOGLOBIN A1C* - 04/05/16 09:55 HEMOGLOBIN A1C* 6.8 4.0-6.0 Prostate specific Ag - 04/05/16 09:55 Prostate specific Ag 7.3 0.0-4.0 LIPID PANEL - 04/05/16 09:55 Cholesterol 247 50-200 HDL Cholesterol 33 40-60 Triglycerides 464 10-150 LDL CHOLESTEROL TNP 50-130 VLDL Cholesterol, calc TNP 4.00-40.00 Cholesterol.total/Cholesterol.in HDL 7.5 0.0-5.0 Complete blood count (CBC) with automated white blood cell (WBC) differential - 05/30/16 15:07 Blood automated leukocyte count 6.76 4.0 -11.0 Erythrocytes 4.87 4.50-5.50 12.0-16.0;g/dL 13.8 13.5-17.0 Hematocrit 41.30 39.00-50.00 Automated erythrocyte mean corpuscular volume 85 80-100 Mean corpuscular hemoglobin (MCH) determination 28.3 26.0-34.0 Automated erythrocyte mean corpuscular hemoglobin concentration measurement ( mass/volume) 33.4 31.0-37.0 Erythrocyte distribution width 14.4 11.8 -15.6 Automated blood platelet count 233 150- 450 Automated blood platelet mean volume measurement 9.6 6.0-9.5 Automated neutrophil percentage 65 51- 67 Lymphocytes/100 leukocytes 20 20-46 Automated monocyte percentage 10 3-11 Eosinophil count auto 4 0-4 Automated basophil percentage 1 0-2 Automated blood neutrophil count 4.4 Blood lymphocytes count (number/volume) 1.4 Automated blood monocyte count 0.7 Blood absolute eosinophil count 0.3 Basophils 0.1 BASIC METABOLIC PANEL* - 05/30/16 15:07 Sodium measurement 99 70-110 CARBON DIOXIDE 27 22-29 Serum or plasma anion gap 18.8 3-15 BLOOD UREA NITROGEN 20 7-18 CREATININE SERUM 1.21 0.8-1.5 Brucella species antibody panel (IgG, IgM) 17 10-20 Estimated glomerular filtration rate (GFR) 70.9 Estimated glomerular filtration rate (GFR) non- 58.6 CALCIUM 9.9 8.8-10.8 Magnesium measurement - 05/30/16 15:07 Magnesium measurement 1.8 1.6-2.3 NT-Pro BNP - 05/30/16 15:07 NT-Pro BNP 1740 0-125 BASIC METABOLIC PANEL* - 06/13/16 14:25 Sodium measurement 82 70-110 CARBON DIOXIDE 26 22-29 Serum or plasma anion gap 18.1 3-15 BLOOD UREA NITROGEN 24 7-18 CREATININE SERUM 1.29 0.8-1.5 Brucella species antibody panel (IgG, IgM) 19 10-20 Estimated glomerular filtration rate (GFR) 65.9 Estimated glomerular filtration rate (GFR) non- 54.4 CALCIUM 10.1 8.8-10.8 Encounters ACCT No. Visit Date/Time Discharge Status Pt. Type Provider Facility Loc./Unit Complaint [id number] 12/29/2014 09:30:00 2014 12:00:00 [facility] [id number] 12/26/2014 07:46:00 2014 23:59:59 CLS Outpatient CORBIN SOLIZ, [facility] LAB [id number] 11/20/2014 16:11:00 2014 23:59:59 CLS Outpatient CORBIN SOLIZ, [facility] [id number] 11/19/2014 09:30:00 2014 23:59:59 [facility] [id number] 09/18/2014 14:08:00 2014 23:59:59 CLS Outpatient CORBIN SOLIZ, [facility] LAB [id number] 09/12/2014 08:37:00 2014 09:50:[address] [facility] ED [id number] 08/03/2014 17:17:00 2014 23:59:59 CLS Outpatient [facility] [id number] 08/03/2014 16:30:00 2014 17:45:00 DIS Emergency [facility] ED [id number] 07/29/2014 14:34:00 2014 23:59:59 CLS Outpatient Ethan SOLIZ, [facility] LAB [id number] 05/23/2014 08:39:00 2014 23:59:59 CLS Outpatient Ethan SOLIZ, [facility] [id number] 05/15/2014 14:56:00 2014 23:59:59 CLS Outpatient Ethan SOLIZ, [facility] LAB [id number] 03/24/2014 12:29:00 2014 23:59:59 CLS Outpatient Ethan SOLIZ, [facility] LAB [id number] 02/14/2014 15:32:00 2013 23:59:59 CLS Outpatient Bartolo Villavicencio [facility] LAB [id number] 01/20/2014 10:38:00 2013 23:59:59 CLS Outpatient CORBIN SOLIZ, [facility] LAB [id number] 12/17/2013 09:27:00 2013 23:59:59 CLS Outpatient CORBIN SOLIZ, [facility] RAD [id number] 05/20/2013 10:15:00 2013 23:59:59 CLS Outpatient CORBIN SOLIZ, [facility] LAB [id number] 02/05/2013 13:40:00 2012 23:59:59 CLS Outpatient CORBIN SOLIZ, [facility] RAD [id number] 01/31/2013 12:46:00 2012 23:59:59 CLS Outpatient CORBIN SOLIZ, [facility] RAD [id number] 01/24/2013 11:42:00 2012 15:54:00 DIS Emergency ANDI SOLIZ, [facility] ED [id number] 11/30/2012 08:06:00 2012 23:59:59 CLS Outpatient CORBIN SOLIZ, [facility] LAB [id number] 06/13/2016 14:23:00 ACT Outpatient CORBIN SOLIZ , [facility] LAB [id number] 05/30/2016 15:03:00 ACT Outpatient CORBIN SOLIZ , [facility] LAB [id number] 04/05/2016 09:50:00 ACT Outpatient CORBIN SOLIZ , [facility] LAB [id number] 01/11/2016 08:56:00 ACT Outpatient CORBIN SOLIZ , [facility] LAB, RAD, RT [id number] 10/08/2015 13:33:00 ACT Outpatient CORBIN SOLIZ , [facility] LAB [id number] 06/22/2015 12:33:00 ACT Outpatient CORBIN SOLIZ , [facility] LAB [id number] 04/15/2015 10:57:00 ACT Outpatient Bozena SOLIZ, [facility] RAD [id number] 03/26/2015 09:09:00 ACT Outpatient CORBIN SOLIZ , [facility] LAB [id number] 05/28/2012 10:20:00 Document Registration [id number] 11/21/2011 09:31:00 Document Registration [id number] 08/19/2011 14:01:00 Document Registration
--- OUTSIDE RECORDS SUMMARY | 2016-06-30 01:32 | XMS REPORT | Continuity of Care Document ---
Author Author [facility] Address Unknown Phone Unavailable Allergies Active Description Code Type Severity Reaction Onset Reported/Identified Relationship to Patient Clinical Status Yes No Known Drug Allergies [id number] Drug Allergy Unknown N/ A 01/24/2013 Yes Jyokfwz-Gbl-Szp Reductase Inhibitor [id number] Drug Allergy Mild N/A 09/12/2014 Medications Problems [...] CORBIN SOLIZ, NATALIA Medrano Ot 601.9 02/17/2014 CORBIN SOLIZ, NATALIA Medrano Ot 786.2 02/17/2014 CORBIN SOLIZ, NATALIA Medrano Ot 790.29 02/19/2014 CORBIN SOLIZ, NATALIA Medrano Ot 601.9 02/19/2014 CORBIN SOLIZ, NATALIA Medrano Ot 786.2 02/19/2014 CORBIN SOLIZ, NATALIA Medrano Ot 790.29 03/06/2014 Bartolo Villavicencio Ot 788.63 04/16/2014 Ethan SOLIZ, Jon Brown Ot 599.0 04/16/2014 Ethan SOLIZ, Jon Brown Ot 791.5 06/10/2014 Ethan SOLIZ, Jon Brown Ot 595.0 06/26/2014 Ethan [...] 09/12/2014 CRUZ DOMILAD Ot 847.1 09/12/2014 CRUZ DOMILAD Ot E928.9 09/12/2014 CRUZ MILAD OROZCO Ot [...] CORBIN SOLIZ, NATALIA R Ot N39.0 01/19/2015 CORBNI SOLIZ, NATALIA R Ot R79.89 01/19/2015 CORBIN [...] 601.9 02/25/2015 CORBIN SOLIZ, NATALIA R Ot 733.00 02/25/2015 CORBIN [...] ELLIOT CADE DOA M Ot 518.81 02/25/2015 CORBIN SOLIZ, NATALIA Medrano Ot 428.0 02/25/2015 CORBIN [...] 401.9 03/04/2015 CORBIN SOLIZ, NATALIA R Ot 434.91 [...] CORBIN SOLIZ, NATALIA R Ot M15.9 03/04/2015 CORBIN SOLIZ, NATALIA R Ot M81.0 03/04/2015 CORBIN [...] Kashif Perez Ot M25.461 05/08/2015 Daily , Kasihf Perez Ot M25.462 05/08/2015 Daily , Kashif [...] MD, Ot E78.5 HYPERLIPIDEMIA, UNSPECIFIED 01/11/2016 NATALIA ALNAIZ MD Ot R79.89 OTHER SPECIFIED ABNORMAL FINDINGS [...] MD Ot I25.10 ATHSCL HEART DISEASE OF [place] CORONARY 01/15/2016 NATALIA ALANIZ MD Ot M10.061 [...] MD Ot I25.10 ATHSCL HEART DISEASE OF [place] CORONARY 02/03/2016 NATALIA ALANIZ MD Ot M10.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, RIGHT KNEE 02/03/2016 NATALIA ALANIZ MD Ot N39.0 URINARY TRACT INFECTION, SITE NOT SPECIF 02/03/2016 NATALIA ALANIZ MD Ot R79.89 OTHER SPECIFIED ABNORMAL FINDINGS OF BLO 02/03/2016 NATALIA ALANIZ MD Ot Z12.5 ENCOUNTER FOR SCREENING FOR MALIGNANT NE 02/19/2016 NATALIA LAANIZ MD Ot D50.8 OTHER IRON DEFICIENCY ANEMIAS 02/19/2016 NATALIA ALANIZ MD Ot E03.4 ATROPHY OF THYROID (ACQUIRED) 02/19/2016 NATALIA ALANIZ MD, Ot E10.65 TYPE 1 DIABETES MELLITUS WITH HYPERGLYCE 02/19/2016 NATALIA ALANIZ MD Ot E78.5 HYPERLIPIDEMIA, UNSPECIFIED 02/19/2016 NATALIA ALANIZ MD Ot E83.42 HYPOMAGNESEMIA 02/19/2016 NATALIA ALANIZ MD Ot I25.10 ATHSCL HEART DISEASE OF [place] CORONARY 02/19/2016 NATALIA ALANIZ MD Ot M10.061 [...] Status Pt. Type Provider Facility Loc./Unit Complaint [id number] 12/29/2014 09:30:00 2014 12:00:00 [facility] [id number] 12/26/2014 07:46:00 2014 23:59:59 CLS Outpatient CORBIN SOLIZ, [facility] LAB [id number] 11/20/2014 16:11:00 2014 23:59:59 CLS Outpatient CORBIN SOLIZ, [facility] [id number] 11/19/2014 09:30:00 2014 23:59:59 [facility] [id number] 09/18/2014 14:08:00 2014 23:59:59 CLS Outpatient CORBIN SOLIZ, [facility] LAB [id number] 09/12/2014 08:37:00 2014 09:50:[address] [facility] ED [id number] 08/03/2014 17:17:00 2014 23:59:59 CLS Outpatient [facility] [id number] 08/03/2014 16:30:00 2014 17:45:00 DIS Emergency [facility] ED [id number] 07/29/2014 14:34:00 2014 23:59:59 CLS Outpatient Ethan SOLIZ, [facility] LAB [id number] 05/23/2014 08:39:00 2014 23:59:59 CLS Outpatient Ethan SOLIZ, [facility] [id number] 05/15/2014 14:56:00 2014 23:59:59 CLS Outpatient Ethan SOLIZ, [facility] LAB [id number] 03/24/2014 12:29:00 2014 23:59:59 CLS Outpatient Ethan SOLZI, [facility] LAB [id number] 02/14/2014 15:32:00 2013 23:59:59 CLS Outpatient Bartolo Villavicencio [facility] LAB [id number] 01/20/2014 10:38:00 2013 23:59:59 CLS Outpatient CORBIN SOLIZ, [facility] LAB [id number] 12/17/2013 09:27:00 2013 23:59:59 CLS Outpatient CORBIN SOLIZ, [facility] RAD [id number] 05/20/2013 10:15:00 2013 23:59:59 CLS Outpatient CORBIN SOLIZ, [facility] LAB [id number] 02/05/2013 13:40:00 2012 23:59:59 CLS Outpatient CORBIN SOLIZ, [facility] RAD [id number] 01/31/2013 12:46:00 2012 23:59:59 CLS Outpatient CORBIN SOLIZ, [facility] RAD [id number] 01/24/2013 11:42:00 2012 15:54:00 DIS Emergency ANDI SOLIZ, [facility] ED [id number] 11/30/2012 08:06:00 2012 23:59:59 CLS Outpatient CORBIN SOLIZ, [facility] LAB [id number] 06/13/2016 14:23:00 ACT Outpatient CORBIN SOLIZ , [facility] LAB [id number] 05/30/2016 15:03:00 ACT Outpatient CORBIN SOLIZ , [facility] LAB [id number] 04/05/2016 09:50:00 ACT Outpatient CORBIN SOLIZ , [facility] LAB [id number] 01/11/2016 08:56:00 ACT Outpatient CORBIN SOLIZ , [facility] LAB, RAD, RT [id number] 10/08/2015 13:33:00 ACT Outpatient CORBIN SOLIZ , [facility] LAB [id number] 06/22/2015 12:33:00 ACT Outpatient CORBIN SOLIZ , [facility] LAB [id number] 04/15/2015 10:57:00 ACT Outpatient Bozena SOLIZ, [facility] RAD [id number] 03/26/2015 09:09:00 ACT Outpatient CORBIN SOLIZ , [facility] LAB [id number] 05/28/2012 10:20:00 Document Registration [id number] 11/21/2011 09:31:00 Document Registration [id number] 08/19/2011 14:01:00 Document Registration
[2016-06-30] MEDS ORDERED: NIAC500T24 PO (02:16)
[2016-06-30] MEDS ORDERED: MOME13HF IH (02:16)
[2016-06-30 02:35] LABS: BASOPHILS % (AUTO) 1 % (0-2); EOSINOPHILS # (AUTO) 0.2 10^3uL; EOSINOPHILS % (AUTO) 2 % (0-4); MEAN CORPUSCULAR HEMOGLOBIN 28.6 PG (26.0-34.0); MEAN CORPUSCULAR HGB CONC 33.4 g/dL (31.0-37.0); MEAN CORPUSCULAR VOLUME 86 FL (80-100); MEAN PLATELET VOLUME 10.6 FL (6.0-9.5); MONOCYTES # (AUTO) 0.7 X10^3; MONOCYTES % (AUTO) 9 % (3-11); NEUTROPHILS # (AUTO) 6.1 X10^3; NEUTROPHILS % (AUTO) 76 % (51-67); PLATELET COUNT 193 10^3uL (150-450); WHITE BLOOD COUNT 8.04 10^3uL (4.0-11.0)
[2016-06-30 02:47] LABS: ANION GAP 15.9 MEQ/L (3-15); TOTAL PROTEIN 7.4 g/dL (6.4-8.5)
[2016-06-30] MEDS ORDERED: FUROSEMIDE 40 MG/4 ML (LASIX) VIAL IV ONE (03:30)
--- NOTE | 2016-06-30 04:17 | NUR ---
Pt voided 325 ml of etelvina urine. Pt lying in bed visiting with family. Speaks in complete sentences.
[2016-06-30] MEDS ORDERED: ENOXAPARIN 100 MG/1 ML (LOVENOX) SYR SC ONE (04:30)
[2016-06-30] MEDS ORDERED: POTASSIUM CHLORIDE ER 20 MEQ TABLET PO ONE (04:30)
[2016-06-30 04:55] VITALS: BP 120/94
--- NOTE | 2016-06-30 05:05 | NUR ---
EMS arrives to transport pt to [facility].
--- NOTE | 2016-06-30 07:07 | Diagnostic Imaging Report ---
INDICATION: Shortness of breath. Portable chest 2:37 AM FINDINGS: There are postop changes from a median sternotomy. There is a dual-chamber pacemaker. Heart size and pulmonary vascularity are normal. Lungs are clear. There are no effusions or pneumothoraces. IMPRESSION: No acute abnormalities in the chest. Dictated by: Dictated on workstation # [id number]
--- NOTE | 2016-06-30 09:11 | Diagnostic Imaging Report ---
PROCEDURE: CT angiography of the chest with contrast. TECHNIQUE: Multiple contiguous axial images were obtained through the chest after uneventful bolus administration of intravenous contrast. Reconstructed CTA MIP acquisitions were also performed. INDICATION: Shortness of breath, elevated d-dimer. FINDINGS: The patient is poststernotomy. A left-sided pacemaker is present with some metallic artifact. Heart size is enlarged and there is dense coronary artery calcification. The thoracic aorta demonstrates moderate wall calcification. Intraluminal assessment unable to be performed given phase of contrast bolus. Trace pericardial effusion versus pericardial thickening present. Azygos vein is mildly distended. The pulmonary artery demonstrates no definitive intraluminal filling defect to suggest pulmonary embolism. There are prominent mediastinal lymph nodes present. There is a right precarinal lymph node measuring 18 x 16 mm. Left paratracheal lymph node AP window region 20 x 12 mm. Additional smaller lymph nodes are present, as well. Moderate sized bilateral pleural effusions layering dependently. Associated compressive atelectasis. Mild prominent interstitial markings favoring a component of edema. There is compressive atelectasis of the lower lobes. No definitive infiltrate. Visualized portion of the upper abdomen demonstrates a 3.4 x 2.5 cm right adrenal gland mass with a Hounsfield unit of 35. There is some reflux of contrast into the inferior vena cava. There appears to be significant calcification of the celiac trunk which also appears to be somewhat ectatic. Granulomas of the spleen. IMPRESSION: 1. No CT evidence for pulmonary embolism. 2. Imaging features favor probable changes of congestive heart failure with bilateral pleural effusions and interstitial edema. 3. Poststernotomy changes the. Trace pericardial effusion versus pericardial thickening with dense coronary artery calcification. 4. There are prominent mediastinal lymph nodes. This must be owing to chronic reactive changes, these lymph nodes are borderline pathologic in size. 5. Right adrenal gland mass. Given the relatively high density on this examination, this cannot be dismissed as a typical adenoma at this time. Other mass lesion, including metastatic disease, is not excluded. Dictated by: Dictated on workstation # [id number]
== END 2016-06-30 05:15 | disposition short-term general hospital (02) ==
LOC: ED 01:25
DX: I50.9 Heart failure, unspecified (principal); R07.89 Other chest pain; R06.02 Shortness of breath
CPT/HCPCS: 36415; 71010; 71275; 80053; 83735; 83880; 84484; 85025; 85379; 93005; 96372; 96374; 99284; A9270; J1650; J1940; Q9967; 93010; 99285

== ENCOUNTER → 2016-06-30 | Outpatient (CLI) | payer MEDICARE ==
[~2016-06-30] MED LIST changes: +MOME13HF IH; +NIAC500T24 PO
== END ==
LOC: EMS 05:10
PROVIDERS: ATTEND Family Medicine
DX: I50.9 Heart failure, unspecified (principal); R06.02 Shortness of breath; R79.89 Other specified abnormal findings of blood chemistry

== ENCOUNTER → 2016-07-05 | Outpatient (CLI) | payer MEDICARE ==
[~2016-07-05] MED LIST changes: +MOME13HF IH; +NIAC500T24 PO
[2016-07-05 14:15] LABS: ANION GAP 18.7 MEQ/L (3-15)
== END ==
LOC: LAB 13:42
PROVIDERS: ATTEND Family Medicine
DX: R09.02 Hypoxemia (principal); R79.89 Other specified abnormal findings of blood chemistry
CPT/HCPCS: 36415; 80048